=== PATIENT | male | born 1945 | race Caucasian/White ===

== ENCOUNTER 2021-10-29 11:56 | Emergency (ER) | payer OTHER ==
[2021-10-29 12:57] LABS: BASOPHIL 0.3 % (0-2); EOSINOPHIL 0.6 % (0-7); HCT 44.4 % (42.0-52.0); HGB 14.7 g/dl (13.2-18.0); MCHC 33.1 g/dL (32.0-36.0); MCV 96.5 fL (78.0-100.0); MONOCYTE 7.8 % (0-12); MPV 10.3 fL (6.0-9.5); NEUTROPHIL 73.1 % (41-80); NRBC 0; PLT 153 K/uL (150-400); RDW 12.9 % (11.5-14.0); WBC 6.3 K/uL (4.0-10.5)
[2021-10-29 13:14] LABS: BILIRUBIN NEGATIVE (NEGATIVE); BLOOD NEGATIVE Ery/uL (NEGATIVE); CLARITY CLEAR (CLEAR); COLOR YELLOW (YELLOW); GLUCOSE (U) NORMAL (NORMAL); LEUKOCYTES NEGATIVE Leu/uL (NEGATIVE); NITRITE NEGATIVE (NEGATIVE); PROTEIN NEGATIVE (NEGATIVE); UROBILINOGEN 0.2 mg/dL (0.2-1.0); pH 6.5 (5.0-9.0)
[2021-10-29 13:27] LABS: BUN/CREAT RATIO (CALC) 20.2 RATIO; CREATININE 1.14 mg/dL (0.67-1.17); POTASSIUM 4.2 mmol/L (3.5-5.1)
== END 2021-10-29 15:00 | disposition home or self-care (01) ==
LOC: FER 11:56
PROVIDERS: Nurse Practitioner Family
DX: R03.0 Elevated blood-pressure reading, without diagnosis of hypertension (principal); G20 Parkinson's disease; F02.80 Dementia in other diseases classified elsewhere, unspecified severity, without behavioral disturbance, psychotic disturbance, mood disturbance, and anxiety; Z87.891 Personal history of nicotine dependence
CPT/HCPCS: 36415; 71045; 80048; 81003; 84484; 85025; 93005